=== PATIENT | male | born 1955 | race Caucasian/White ===

== ENCOUNTER 2020-03-10 17:06 | Inpatient (IN) | payer MEDICARE, BC ==
[2020-03-10 20:28] LABS: Anisocytosis Slight; Basophils % (A) 0 %; Eosinophils % (A) 1 %; HCT 27.2 % (39.0-53.0); HGB 8.9 gm/dL (13.0-17.5); Hypochromasia Slight; Lymphocytes # (A) 0.2 k/uL (1.0-4.8); Lymphocytes % (A) 3 %; MCH 29.4 pg (25.0-35.0); MCHC 32.6 g/dL (31.0-37.0); MCV 90.1 fL (80.0-100.0); Mean Platelet Volume 8.1; Monocytes # (A) 0.3 k/uL (0-1.0); Monocytes % (A) 4 %; Neutrophils # (A) 5.6 k/uL (1.3-7.7); Neutrophils % (A) 90 %; Platelet Count 169 k/uL (150-450); RBC 3.02 m/uL (4.30-5.90); RDW 16.5 % (11.5-15.5); WBC 6.3 k/uL (3.8-10.6)
--- NOTE | 2020-03-10 20:28 | ED ---
Recheck HPI <Robby Smith - Last Filed: 03/10/20 21:25> - General Source: patient, family Mode of arrival: wheelchair Limitations: no limitations <Sondra Albarado - Last Filed: 03/10/20 22:07> - General Chief Complaint: Recheck/Abnormal Lab/Rx Stated Complaint: sent by [facility] Time Seen by Provider: 03/10/20 19:45 - History of Present Illness Initial Comments: 64-year-old male patient who is a postop day #46 after having a kidney transplant from a donor presents to the emergency department today sent by his transplant physician for decreased magnesium. Patient had labs drawn this morning and was called and informed that his magnesium was 0.7, he also had a low potassium which his physician sent over oral potassium replacement was pharmacy. Take 2 tablets this morning. Patient states he is feeling well otherwise. Denies any chest pain, shortness of breath, nausea, vomiting, or diarrhea. Denies any muscle cramping or abdominal pain. Patient does have a wound VAC to an open wound on his right abdomen. Patient states he has had magnesium and phosphorus infusion since his surgery. Patient denies any recent rash, fever, chills, cough, shortness of breath, constipation, back pain, numbness, tingling, dizziness, weakness, hematuria, dysuria, urinary urgency, urinary frequency, headache, visual changes, or any other complaints. (Sondra Albarado) - Related Data Home Medications Medication Instructions Recorded Confirmed Atorvastatin [Lipitor] 40 mg PO HS 03/10/20 03/10/20 Cholecalciferol [Vitamin D3 (25 2,000 unit PO DAILY@89903/10/20 03/10/20 Mcg = 1000 Iu)] Docusate [Colace] 100 mg PO BID@0800,1999 PRN 03/10/20 03/10/20 Ferrous Sulfate [Feosol] 325 mg PO HS@2100 03/10/20 03/10/20 Fludrocortisone [Florinef] 0.1 mg PO DIRECTED 03/10/20 03/10/20 Hydrocortisone [Cortef] 10 mg PO DAILY@1400 03/10/20 03/10/20 Hydrocortisone [Cortef] 20 mg PO DAILY@89903/10/20 03/10/20 K-Phos 500mg 1,000 mg PO TID 03/10/20 03/10/20 Magnesium Oxide 400 mg PO TID@1200,1400,1800 03/10/20 03/10/20 Metoprolol Tartrate [Lopressor] 12.5 mg PO BID@0900,209903/10/20 03/10/20 Omeprazole 40 mg PO DAILY@89903/10/20 03/10/20 Polyethylene Glycol 3350 [Miralax] 17 gm PO DAILY PRN 03/10/20 03/10/20 Potassium Chloride ER [K-Dur 20] 20 meq PO BID@0800,1800 03/10/20 03/10/20 Sennosides [Senokot] 8.6 - 17.2 mg PO DAILY PRN 03/10/20 03/10/20 Sulfamethox-Tmp 400-80Mg [Bactrim 1 tab PO DAILY@89903/10/20 03/10/20 SS 400-80 mg] Tacrolimus [Envarsus Xr] 3 mg PO DAILY@89903/10/20 03/10/20 Tamsulosin [Flomax] 0.4 mg PO DAILY 03/10/20 03/10/20 Valcyte 900mg 1,800 mg PO DAILY@89903/10/20 03/10/20 mycophenolate mofetiL [Cellcept] 500 mg PO BID@09,209903/10/20 03/10/20 Allergies Allergy/AdvReac Type Severity Reaction Status Date / Time No Known Allergies Allergy Verified 03/10/20 20:35 Review of Systems ROS Other: All systems not noted in ROS Statement are negative. <Robby Smith - Last Filed: 03/10/20 21:25> ROS Other: All systems not noted in ROS Statement are negative. <Sondra Albarado - Last Filed: 03/10/20 22:07> ROS Statement: Those systems with pertinent positive or pertinent negative responses have been documented in the HPI. Past Medical History Past Medical History: Renal Disease History of Any Multi-Drug Resistant Organisms: None Reported Additional Past Surgical History / Comment(s): kidney transplant Past Psychological History: No Psychological Hx Reported Smoking Status: Never smoker Past Alcohol Use History: None Reported Past Drug Use History: None Reported <Sondra Albarado - Last Filed: 03/10/20 22:07> General Exam Limitations: no limitations General appearance: alert, in no apparent distress, other (This is a well- developed, well-nourished adult male patient in no acute distress. Vital signs upon presentation are temperature 98.2F, pulse 89, as patient's 18, blood pressure 130/79, pulse ox 97% on room air.) Respiratory exam: Present: normal lung sounds bilaterally. Absent: respiratory distress, wheezes, rales, rhonchi, stridor Cardiovascular Exam: Present: regular rate, normal rhythm, normal heart sounds. Absent: systolic murmur, diastolic murmur, rubs, gallop, clicks GI/Abdominal exam: Present: soft, normal bowel sounds, other (Right lower quadrant wound VAC in place). Absent: distended, tenderness, guarding, rebound, rigid Neurological exam: Present: alert, oriented X3, CN II-XII intact Psychiatric exam: Present: normal affect, normal mood Skin exam: Present: warm, dry, intact, normal color. Absent: rash <Sondra Albarado - Last Filed: 03/10/20 22:07> Course <Robby Smith - Last Filed: 03/10/20 21:25> Vital Signs 03/10/20 03/10/20 17:24 21:11 Temperature 98.0 F Pulse Rate 89 73 Respiratory 18 18 Rate Blood Pressure 138/79 135/77 O2 Sat by Pulse 97 98 Oximetry - Reevaluation(s) Reevaluation #1: 03/10/20 21:25 There is marked history supervision: I did evaluate this case patient does present with hypomagnesemia. Case was discussed with the patient's tube operator at [facility] recommendations for replacement overnight observation patient be admitted to Dr. Blackburn. (Robby Smith) Medical Decision Making - Lab Data Result diagrams: 03/10/20 20:10 03/10/20 20:10 <Robby Smith - Last Filed: 03/10/20 21:25> - Lab Data Result diagrams: 03/10/20 20:10 03/10/20 20:10 <Sondra Albarado - Last Filed: 03/10/20 22:07> - Medical Decision Making 64-year-old male patient who is postop day #46 after having a kidney transplant. He is sent by his physician at [facility] for electrolyte replacement. He had labs drawn this morning and was found to have a decreased potassium at 2.9 and decreased magnesium of 0.7. They did call in a prescription for potassium he did take 2 tablets this morning. We did repeat labs while here in the department, he had been potassium of 3.4, magnesium 0.8, calcium 6.4. I discussed the case with the on-call tube operator at [facility] Dr. Woodard. He recommends for gram magnesium replacement, potassium replacement, an observation admission for repeat labs in the morning. I discussed the case with Dr. Blackburn who is agreeable with this admission. (Sondra Albarado) - Lab Data Lab Results 03/10/20 03/10/20 Range/Units 20:10 20:10 WBC 6.3 (3.8-10.6) k/uL RBC 3.02 L (4.30-5.90) m/uL Hgb 8.9 L (13.0-17.5) gm/dL Hct 27.2 L (39.0-53.0) % MCV 90.1 (80.0-100.0) fL MCH 29.4 (25.0-35.0) pg MCHC 32.6 (31.0-37.0) g/dL RDW 16.5 H (11.5-15.5) % Plt Count 169 (150-450) k/uL Neutrophils % 90 % Lymphocytes % 3 % Monocytes % 4 % Eosinophils % 1 % Basophils % 0 % Neutrophils # 5.6 (1.3-7.7) k/uL Lymphocytes # 0.2 L (1.0-4.8) k/uL Monocytes # 0.3 (0-1.0) k/uL Eosinophils # 0.0 (0-0.7) k/uL Basophils # 0.0 (0-0.2) k/uL Hypochromasia Slight Anisocytosis Slight Sodium 137 (137-145) mmol/L Potassium 3.4 L (3.5-5.1) mmol/L Chloride 102 (98-107) mmol/L Carbon Dioxide 29 (22-30) mmol/L Anion Gap 6 mmol/L BUN 19 (9-20) mg/dL Creatinine 0.87 (0.66-1.25) mg/dL Est GFR (CKD-EPI)AfAm >90 (>60 ml/min/1.73 sqM) Est GFR (CKD-EPI)NonAf >90 (>60 ml/min/1.73 sqM) Glucose 141 H (74-99) mg/dL Calcium 6.4 L* (8.4-10.2) mg/dL Phosphorus 3.3 (2.5-4.5) mg/dL Magnesium 0.8 L* (1.6-2.3) mg/dL Total Bilirubin 0.9 (0.2-1.3) mg/dL AST 31 (17-59) U/L ALT 20 (4-49) U/L Alkaline Phosphatase 110 (38-126) U/L Total Protein 5.2 L (6.3-8.2) g/dL Albumin 3.1 L (3.5-5.0) g/dL Disposition <Robby Smith - Last Filed: 03/10/20 21:25> Decision to Admit Reason: Admit from EC Decision Date: 03/10/20 Decision Time: 21:29 <Sondra Albarado - Last Filed: 03/10/20 22:07> Clinical Impression: Hypomagnesemia, Hypokalemia, Hypocalcemia Disposition: ADMITTED IP TO THIS [facility] Condition: Serious
[2020-03-10 20:34] LABS: ALT 20 U/L (4-49); AST 31 U/L (17-59); African American GFR (CKD) >90 (>60 ml/min/1.73 sqM); Albumin 3.1 g/dL (3.5-5.0); Alkaline Phosphatase 110 U/L (38-126); Anion Gap 6 mmol/L; Blood Urea Nitrogen 19 mg/dL (9-20); Carbon Dioxide 29 mmol/L (22-30); Chloride 102 mmol/L (98-107); Glucose 141 mg/dL (74-99); Non-African American GFR(CKD) >90 (>60 ml/min/1.73 sqM); Phosphorus 3.3 mg/dL (2.5-4.5); Potassium 3.4 mmol/L (3.5-5.1); Sodium 137 mmol/L (137-145); Total Bilirubin 0.9 mg/dL (0.2-1.3); Total Protein 5.2 g/dL (6.3-8.2)
[2020-03-10 20:44] LABS: Calcium 6.4 mg/dL (8.4-10.2); Magnesium 0.8 mg/dL (1.6-2.3)
[2020-03-10] MEDS: MAGNESIUM SULFATE-D5W PMX 1 GM in DEXTROSE/WATER 1 100ML.BAG IVPB SCH ×3 (21:11→23:26)
[2020-03-10] MEDS ORDERED: POTASSIUM CHLORIDE ER 20 MEQ TAB.ER PO STA (21:13)
[2020-03-10] MEDS ORDERED: NALOXONE 0.4 MG/ML 1 ML VIAL IV PRN (21:26)
[2020-03-10] MEDS ORDERED: FLUDROCORTISONE 0.1 MG TAB PO SCH (21:30)
[2020-03-10] MEDS ORDERED: K PHOS PO SCH (22:00)
[2020-03-11] MEDS ORDERED: K PHOS PO SCH (00:27)
[2020-03-11] MEDS: MAGNESIUM SULFATE-D5W PMX 1 GM in DEXTROSE/WATER 1 100ML.BAG IVPB SCH (00:32)
[2020-03-11 05:11] LABS: African American GFR (CKD) >90 (>60 ml/min/1.73 sqM); Anion Gap 4 mmol/L; Blood Urea Nitrogen 15 mg/dL (9-20); Calcium 6.7 mg/dL (8.4-10.2); Carbon Dioxide 29 mmol/L (22-30); Chloride 104 mmol/L (98-107); Glucose 70 mg/dL (74-99); Magnesium 1.8 mg/dL (1.6-2.3); Non-African American GFR(CKD) >90 (>60 ml/min/1.73 sqM); Phosphorus 3.1 mg/dL (2.5-4.5); Potassium 3.3 mmol/L (3.5-5.1); Sodium 137 mmol/L (137-145)
[2020-03-11] MEDS ORDERED: POTASSIUM CHLORIDE ER 20 MEQ TAB.ER PO SCH (08:00)
[2020-03-11] MEDS ORDERED: DOCUSATE 100 MG CAP PO PRN (08:00)
[2020-03-11] MEDS ORDERED: TAMSULOSIN 0.4 MG CAP.ER.24H PO SCH (09:00)
[2020-03-11] MEDS ORDERED: SENNOSIDES 8.6 MG TAB PO PRN (09:00)
[2020-03-11] MEDS ORDERED: SULFAMETHOX-TMP 400-80MG 1 EACH TAB PO SCH (09:00)
[2020-03-11] MEDS ORDERED: CHOLECALCIFEROL 1,000 UNIT TAB PO SCH (09:00)
[2020-03-11] MEDS ORDERED: NON FORMULARY DRUG (Tacrolimus [Envarsus Xr] 1 MG Tab.Er.24h) PO SCH (09:00)
[2020-03-11] MEDS ORDERED: HYDROCORTISONE 10 MG TAB PO SCH ×2 (09:00→14:00)
[2020-03-11] MEDS ORDERED: polyethylene glycoL 3350 17 GM POWD.PACK PO PRN (09:00)
[2020-03-11] MEDS ORDERED: METOPROLOL TARTRATE 12.5 MG TAB PO SCH (09:00)
[2020-03-11] MEDS ORDERED: PANTOPRAZOLE 40 MG TABLET PO SCH (09:00)
[2020-03-11 10:52] VITALS: TEMP 97.7
[2020-03-11] MEDS ORDERED: POTASSIUM CHLORIDE ER 20 MEQ TAB.ER PO STA (11:09)
[2020-03-11] MEDS ORDERED: MAGNESIUM SULFATE-D5W PMX 1 GM in DEXTROSE/WATER 1 100ML.BAG IVPB ONE (11:30)
--- NOTE | 2020-03-11 13:10 | P.HPIM ---
History of Present Illness 64-year-old male patient who is a postop day #47 after having a kidney transplant from a donor presents to the emergency department today sent by his transplant physician for decreased magnesium. Patient had labs drawn this morning and was called and informed that his magnesium was 0.7, he also had a low potassium which his physician sent over oral potassium replacement was pharmacy. Take 2 tablets this morning. Patient states he is feeling well otherwise. Denies any chest pain, shortness of breath, nausea, vomiting, or diarrhea. Denies any muscle cramping or abdominal pain. Patient does have a wound VAC to an open wound on his right abdomen. Patient states he has had magnesium and phosphorus infusion since his surgery. Patient denies any recent rash, fever, chills, cough, shortness of breath, constipation, back pain, numbness, tingling, dizziness, weakness, hematuria, dysuria, urinary urgency, urinary frequency, headache, visual changes, or any other complaints. She did receive IV magnesium supplementation patient presently magnesium is 1.8 per hour we will give him 1 more gram of magnesium potassium is 3.4 today which will replace vessel disease were extremely low as today. Patient is already in magnesium potassium supplementation as well as phosphorus supplementation. These electrolyte abnormalities of mostly secondary to tacrolimus. Patient was also being treated for adrenal insufficiency with acute And Hydrocortisone. Reports Some Was Recently Discontinued. Patient Is Being Closely Followed by [facility] Transplant Team along with Endocrinology, Nephrology Closely. She will have repeat labs coming . Review of Systems REVIEW OF SYSTEMS: CONSTITUTIONAL: No fever, no malaise, no fatigue. HEENT: No recent visual problems or hearing problems. Denied any sore throat. CARDIOVASCULAR: No chest pain, orthopnea, PND, no palpitations, no syncope. PULMONARY: No shortness of breath, no cough, no hemoptysis. GASTROINTESTINAL: No diarrhea, no nausea, no vomiting, no abdominal pain. NEUROLOGICAL: No headaches, no weakness, no numbness. HEMATOLOGICAL: Denies any bleeding or petechiae. GENITOURINARY: Denies any burning micturition, frequency, or urgency. MUSCULOSKELETAL/RHEUMATOLOGICAL: Denies any joint pain, swelling, or any muscle pain. ENDOCRINE: Denies any polyuria or polydipsia. The rest of the 14-point review of systems is negative. Past Medical History Past Medical History: Renal Disease History of Any Multi-Drug Resistant Organisms: None Reported Additional Past Surgical History / Comment(s): kidney transplant Past Psychological History: No Psychological Hx Reported Smoking Status: Never smoker Past Alcohol Use History: None Reported Past Drug Use History: None Reported Medications and Allergies Home Medications Medication Instructions Recorded Confirmed Type Atorvastatin [Lipitor] 40 mg PO HS 03/10/20 03/10/20 History Cholecalciferol [Vitamin D3 (25 2,000 unit PO DAILY@89903/10/20 03/10/20 History Mcg = 1000 Iu)] Docusate [Colace] 100 mg PO BID@0800,1999 PRN 03/10/20 03/10/20 History Ferrous Sulfate [Iron (65 MG 325 mg PO HS@209903/10/20 03/10/20 History Elemental)] Hydrocortisone [Cortef] 10 mg PO DAILY@1400 03/10/20 03/10/20 History Hydrocortisone [Cortef] 20 mg PO DAILY@89903/10/20 03/10/20 History K-Phos 500mg 1,000 mg PO TID 03/10/20 03/10/20 History Magnesium Oxide 400 mg PO TID@1200,1400,1800 03/10/20 03/10/20 History Metoprolol Tartrate [Lopressor] 12.5 mg PO BID@0900,209903/10/20 03/10/20 History Omeprazole 40 mg PO DAILY@89903/10/20 03/10/20 History Polyethylene Glycol 3350 [Miralax] 17 gm PO DAILY PRN 03/10/20 03/10/20 History Potassium Chloride ER [K-Dur 20] 20 meq PO BID@0800,1800 03/10/20 03/10/20 History Sennosides [Senokot] 8.6 - 17.2 mg PO DAILY PRN 03/10/20 03/10/20 History Sulfamethox-Tmp 400-80Mg [Bactrim 1 tab PO DAILY@89903/10/20 03/10/20 History SS 400-80 mg] Tacrolimus [Envarsus Xr] 3 mg PO DAILY@89903/10/20 03/10/20 History Tamsulosin [Flomax] 0.4 mg PO DAILY 03/10/20 03/10/20 History Valcyte 900mg 1,800 mg PO DAILY@89903/10/20 03/10/20 History mycophenolate mofetiL [Cellcept] 500 mg PO BID@0900,2100 03/10/20 03/10/20 History Allergies Allergy/AdvReac Type Severity Reaction Status Date / Time No Known Allergies Allergy Verified 03/10/20 20:35 Physical Exam Vitals: Vital Signs Temp Pulse Resp BP Pulse Ox 03/11/20 10:46 97.7 F 90 14 137/73 96 03/11/20 09:30 97.6 F 86 14 121/75 96 03/11/20 07:00 98 F 84 18 133/73 97 03/11/20 06:00 76 18 137/78 97 03/11/20 05:00 77 18 134/68 98 03/11/20 04:00 78 20 133/73 97 03/11/20 02:00 77 16 147/87 98 03/11/20 01:00 79 16 148/74 98 03/10/20 23:00 98 F 78 18 135/77 97 03/10/20 21:11 73 18 135/77 98 03/10/20 17:24 98.0 F 89 18 138/79 97 Intake and Output 03/10/20 03/11/20 03/11/20 22:59 06:59 14:59 Other: Weight 70.307 kg PHYSICAL EXAMINATION: GENERAL: The patient is alert and oriented x3, not in any acute distress. Well developed, well nourished. HEENT: Pupils are round and equally reacting to light. EOMI. No scleral icterus. No conjunctival pallor. Normocephalic, atraumatic. No pharyngeal erythema. No thyromegaly. CARDIOVASCULAR: S1 and S2 present. No murmurs, rubs, or gallops. PULMONARY: Chest is clear to auscultation, no wheezing or crackles. ABDOMEN: Soft, nontender, nondistended, normoactive bowel sounds. No palpable organomegaly. Patient has a wound VAC in the right lower abdomen abdomen MUSCULOSKELETAL: No joint swelling or deformity. EXTREMITIES: No cyanosis, clubbing, or pedal edema. NEUROLOGICAL: Gross neurological examination did not reveal any focal deficits. SKIN: No rashes. Results CBC & Chem 7: 03/10/20 20:10 03/11/20 04:39 Labs: Abnormal Lab Results - Last 24 Hours (Table) 03/10/20 03/10/20 03/11/20 Range/Units 20:10 20:10 04:39 RBC 3.02 L (4.30-5.90) m/uL Hgb 8.9 L (13.0-17.5) gm/dL Hct 27.2 L (39.0-53.0) % RDW 16.5 H (11.5-15.5) % Lymphocytes # 0.2 L (1.0-4.8) k/uL Potassium 3.4 L 3.3 L (3.5-5.1) mmol/L Glucose 141 H 70 L (74-99) mg/dL Calcium 6.4 L* 6.7 L (8.4-10.2) mg/dL Magnesium 0.8 L* (1.6-2.3) mg/dL Total Protein 5.2 L (6.3-8.2) g/dL Albumin 3.1 L (3.5-5.0) g/dL Assessment and Plan Plan: -Multiple electrolyte abnormalities, including hypomagnesemia and hypokalemia these were replaced and patient will be discharged today. -Hypomagnesemia and hypokalemia: Secondary to tacrolimus patient is being closely followed by above-mentioned physicians from [facility] and will have repeat lab again in about 3 days and patient will continue his of potassium and magnesium supplementation. -Post renal transplant: Patient the creatinine is within normal limits. She will be continued on the tacrolimus, Bactrim, mycophenolate, Valtrex - renal insufficiency: Continue with hydrocortisone regards was recently discontinued believe this is a secondary adrenal insufficiency from a long-term prednisone use posttransplantation and patient is probably being tab per day of these medications. -Hyperlipidemia -Benign prostatic hypertrophy
--- NOTE | 2020-03-11 13:10 | P.DS ---
Providers Date of admission: 03/10/20 21:24 Attending physician: Claudette Blackburn Primary care physician: Lida F F Thompson Hospital Course: Patient circumflex lites are being replaced and patient the will be discharged today Patient Condition at Discharge: Serious Plan - Discharge Summary New Discharge Prescriptions: Continue Omeprazole 40 mg PO DAILY@0900 Metoprolol Tartrate [Lopressor] 12.5 mg PO BID@0900,2100 Ferrous Sulfate [Iron (65 MG Elemental)] 325 mg PO HS@2100 Cholecalciferol [Vitamin D3 (25 Mcg = 1000 Iu)] 2,000 unit PO DAILY@0900 Sulfamethox-Tmp 400-80Mg [Bactrim SS 400-80 mg] 1 tab PO DAILY@0900 Hydrocortisone [Cortef] 20 mg PO DAILY@0900 Hydrocortisone [Cortef] 10 mg PO DAILY@1400 mycophenolate mofetiL [Cellcept] 500 mg PO BID@0900,2100 Tacrolimus [Envarsus Xr] 3 mg PO DAILY@0900 Polyethylene Glycol 3350 [Miralax] 17 gm PO DAILY PRN PRN Reason: Constipation Sennosides [Senokot] 8.6 - 17.2 mg PO DAILY PRN PRN Reason: Constipation Docusate [Colace] 100 mg PO BID@0800,1999 PRN PRN Reason: Constipation Potassium Chloride ER [K-Dur 20] 20 meq PO BID@0800,1800 Magnesium Oxide 400 mg PO TID@1200,1400,1800 K-Phos 500mg 1,000 mg PO TID Tamsulosin [Flomax] 0.4 mg PO DAILY Atorvastatin [Lipitor] 40 mg PO HS Valcyte 900mg 1,800 mg PO DAILY@0900 Discontinued Fludrocortisone [Florinef] 0.1 mg PO DIRECTED Discharge Medication List Atorvastatin [Lipitor] 40 mg PO HS 03/10/20 [History] Cholecalciferol [Vitamin D3 (25 Mcg = 1000 Iu)] 2,000 unit PO DAILY@0900 03/10/20 [History] Docusate [Colace] 100 mg PO BID@0800,1999 PRN 03/10/20 [History] Ferrous Sulfate [Iron (65 MG Elemental)] 325 mg PO HS@2100 03/10/20 [History] Hydrocortisone [Cortef] 10 mg PO DAILY@1400 03/10/20 [History] Hydrocortisone [Cortef] 20 mg PO DAILY@89903/10/20 [History] K-Phos 500mg 1,000 mg PO TID 03/10/20 [History] Magnesium Oxide 400 mg PO TID@1200,1400,1800 03/10/20 [History] Metoprolol Tartrate [Lopressor] 12.5 mg PO BID@899,209903/10/20 [History] Omeprazole 40 mg PO DAILY@89903/10/20 [History] Polyethylene Glycol 3350 [Miralax] 17 gm PO DAILY PRN 03/10/20 [History] Potassium Chloride ER [K-Dur 20] 20 meq PO BID@0800,179903/10/20 [History] Sennosides [Senokot] 8.6 - 17.2 mg PO DAILY PRN 03/10/20 [History] Sulfamethox-Tmp 400-80Mg [Bactrim SS 400-80 mg] 1 tab PO DAILY@89903/10/20 [History] Tacrolimus [Envarsus Xr] 3 mg PO DAILY@89903/10/20 [History] Tamsulosin [Flomax] 0.4 mg PO DAILY 03/10/20 [History] Valcyte 900mg 1,800 mg PO DAILY@89903/10/20 [History] mycophenolate mofetiL [Cellcept] 500 mg PO BID@899,209903/10/20 [History] Follow up Appointment(s)/Referral(s): Lida Ramirez MD [Primary Care Provider] - 3 Days Patient Instructions/Handouts: Hypokalemia (ED), Hypocalcemia (ED), Hypomagnesemia (ED) Discharge Disposition: HOME SELF-CARE
[2020-03-11 13:36] VITALS: BP 127/75; PULSE 54; RESP 18
[2020-03-11] MEDS ORDERED: ATORVASTATIN 40 MG TAB PO SCH (21:00)
[2020-03-11] MEDS ORDERED: FERROUS SULFATE 325 MG TAB PO SCH (21:00)
== END 2020-03-11 13:34 | disposition home or self-care (01) | DRG 641 ==
LOC: EC 17:06 → 5NMEDONC 21:24 → 4SSUR 22:00
PROVIDERS: ADMIT Internal Medicine; ATTEND Internal Medicine
DX: E83.42 Hypomagnesemia (principal); E27.49 Other adrenocortical insufficiency; Z94.0 Kidney transplant status; E78.5 Hyperlipidemia, unspecified; E83.51 Hypocalcemia; E87.6 Hypokalemia; N40.0 Benign prostatic hyperplasia without lower urinary tract symptoms; T45.1X5A Adverse effect of antineoplastic and immunosuppressive drugs, initial encounter; Z79.52 Long term (current) use of systemic steroids; Z79.899 Other long term (current) drug therapy
CPT/HCPCS: 36415; 80048; 80053; 83735; 84100; 85025; 93005; 96365; 96366; 99284

== ENCOUNTER 2024-03-05 19:40 | Outpatient (CLI) | payer MEDICARE ==
--- NOTE | 2024-03-15 16:44 | P.PCN ---
Date of Procedure: 03/05/24 Operative Findings: Polysomnography report Date of service is 03/04/2024 History A pleasant 68-year-old male patient with multiple medical issues and comorbidities coming in to be investigated for sleep apnea upon the request of his physicians He is seen [facility] for chronic kidney disease and the patient has undergone a renal transplant back in 2019. His transplant was successful and the patient has recovered from his renal failure. Nevertheless, he has developed a large anterior abdominal hernia which is an ongoing issue for now. The patient also developed a chronic wound over his anterior abdominal wall which has not healed completely. No active wound infection at this point in time His comorbidities include chronic adrenal insufficiency, and hypertension. In regards to obstructive sleep apnea, he has chronic hypersomnia sleepiness. His Stanfield score is at 16. He has snoring and witnessed apneas according to the . High likelihood for obstructive sleep apnea. Will proceed with a screening polysomnography and decide on treatment options accordingly. Physical findings The patient's weight is 178 pounds with a body mass index of 31.5 Technical description The patient was studied using a standard complex polysomnography protocol that included recording of the Lead II EKG, Central, occipital and frontal EEG, right and left outer canthus EOG, submental EMG, right and left anterior tibialis EMG, respiratory airflow by thermocouple and or pressure/flow transducer, respiratory efforts by abdominal and thoracic PVDF belts, oxygen saturation by cable oximetry. Position by observation synchronized the PSG. Equipment used: [employer]. Sleep architecture The total recording duration was 377.5 minutes. The total sleep time was 322.0 minutes. The latency to sleep onset was 5.5 minutes. Latency to REM sleep was 26.5 minutes. The sleep architecture was catheterized by 5.3% stage I, 77.3% stage II, 3.6% stage III, and a total of 16.5% REM sleep. The wake after sleep onset time was 50.5 minutes. The total arousal index was 10.8. Respiratory analysis The sleep study showed a total of 49 obstructive events of which 2 were obstructive apneas, 0 were mixed apneas and 47 obstructive hypopneas. The resulting apnea-hypopnea index was 7.6. No central apneas were noted. Note that the patient's disease was slightly worse in a supine body position with an AHI of 12 Oxygenation analysis The baseline pulse ox was 91% while awake. Lowest pulse ox was 86% and the patient spent approximately 31 minutes of sleep time below pulse ox of 89%. The minimum pulse ox during REM sleep was 87%. Sleep continuity summary The patient had total of 58 arousals with an index of 10.8. The respiratory arousal index was 4.5 Periodic limb movement summary A total of 376 periodic movement activity was noted with an index of 70.1. Periodic limb movements associated with arousals were to with a arousal index of 0.4 related to periodic limb movements. Cardiac summary The average heart rate was 63 with a minimum heart rate of 60 and a maximum heart of 67 Assessment Mild JAY with an AHI of 7.6 Baseline chronic hypoxemia with a pulse ox of 91% while awake, with limited nocturnal oxygen saturations Snoring History of kidney transplantation Adrenal insufficiency Large anterior abdominal wall hernia Excessive periodic limb movement activity, not disabled arousals. The overall arousal index is low Plan Will discuss findings with the patient. The patient's sleep apnea is very mild at this point. The patient obviously would qualify for CPAP therapy if he is willing to undertake the treatment. Alternatively, he may also consider other treatment options including the possibility of an oral appliance. Will asked the patient to implement good sleep hygiene measures. Treat comorbidities. Maintain regular sleep schedule. Final recommendations on treatment of choice for mild obstructive sleep apnea after discussing this with the patient.
== END 2024-03-06 05:30 | disposition home or self-care (01) ==
LOC: 3 N SLEEP 19:40
PROVIDERS: ATTEND Internal Medicine Critical Care Medicine
CPT/HCPCS: 95810